=== PATIENT | female | born 1965 | race Hispanic/Latino ===

== ENCOUNTER 2018-08-10 22:23 | Emergency (ER) | payer OTHER, SELFPAY ==
[~2018-08-10] VITALS: Ht 162.6 cm; Wt 95.4 kg
[2018-08-10 22:24] VITALS: BP 115/65
[2018-08-10] MEDS ORDERED: CARV25TA PO (22:32)
[2018-08-10] MEDS ORDERED: AMOX500C PO (22:32)
[2018-08-10] MEDS ORDERED: [UNRECOGNIZED DRUG - OTHER] (22:32)
[2018-08-10] MEDS ORDERED: [UNRECOGNIZED DRUG - CODE] PO (22:32)
[2018-08-11] MEDS ORDERED: AMOXICILLIN 500 MG CAP PO ONE (01:15)
[2018-08-11] MEDS ORDERED: AMOX500C PO (01:32)
== END 2018-08-11 01:35 | disposition home or self-care (01) ==
LOC: M ED 22:23
DX: J02.0 Streptococcal pharyngitis (principal); R05 Cough; K21.9 Gastro-esophageal reflux disease without esophagitis; I10 Essential (primary) hypertension